=== PATIENT | female | born 1950 | race Caucasian/White ===

== ENCOUNTER → 2018-12-05 | Day surgery (SDC) | payer OTHER, MEDICARE ==
--- NOTE | 2018-12-06 08:04 | OP ---
DATE OF OPERATION: 12/05/2018 PREOPERATIVE DIAGNOSIS: Left chest wall veena-implant fluid. POSTOPERATIVE DIAGNOSIS: Left chest wall veena-implant fluid. PROCEDURE: Left ultrasound-guided fluid aspiration (rule out implant-associated lymphoma). ANESTHESIA: Local. ATTENDING SURGEON: Faye Farley MD ESTIMATED BLOOD LOSS: Minimal. COMPLICATIONS: None. DESCRIPTION OF PROCEDURE: Patient was made aware of the risks and benefits of the procedure including possible implant rupture. Patient was placed in a supine position under sterile conditions with 1% lidocaine for local anesthesia under ultrasound guidance. A small morris was made in the skin, and an 18-gauge needle was used to aspirate 1.5 mL of clear, nonbloody fluid. This was all done under ultrasound guidance, and there was no evidence of implant rupture, and no residual fluid was left, and there was no residual nodularity. Specimen was submitted fresh to Pathology for immediate processing. Well tolerated by patient. Steri-Strip and a sterile bandage was applied. We will contact her with results. FAYE FARLEY M.D. [id number]
--- NOTE | 2018-12-12 15:01 | PATH ---
Cytology Non-Gynecological Report Patient Name: VARGAS AGRAWAL [facility]. Rec. #: [id number] /Age/Gender: 1950 (Age: 68) / F Account: [id number] Location: Taken: 12/05/2018 Received: 12/05/2018 Reported: 12/12/2018 Physicians: Roula Farley M.D. Specimen(s) Received LEFT BREAST 12:00 4 CM FN Clinical History s/p silicone implant r/o anaplastic large cell lymphoma Final Diagnosis BREAST, LEFT, 12:00 4 CM FN, ASPIRATION: SATISFACTORY FOR EVALUATION. FEW HISTIOCYTES AND ACELLULAR MATERIAL. NO EVIDENCE OF MALIGNANCY. Electronically Signed Cyn Ruvalcaba M.D. Gross Description Received fresh labeled left breast 12:00 4 cm fn is approximately 5 mL of clear yellow fluid. One smear and one cell block is prepared.
== END | disposition home or self-care (01) ==
LOC: FRADUS-SUR 15:31
PROVIDERS: ATTEND Surgery Surgical Oncology
PROC: BH41ZZZ Ultrasonography of Left Breast (ICD-10-PCS; principal; 2018-12-05)
PROC: 0H9U3ZX Drainage of Left Breast, Percutaneous Approach, Diagnostic (ICD-10-PCS; 2018-12-05)
DX: N64.89 Other specified disorders of breast (principal)
CPT/HCPCS: 76942; 88173